=== PATIENT | female | born 1995 | race African-American/Black ===

== ENCOUNTER 2018-06-29 22:50 | Emergency (ER) | payer MEDICAID ==
[~2018-06-29] VITALS: Ht 175.3 cm; Wt 93.9 kg
[2018-06-30 05:02] VITALS: BP 119/82
== END 2018-06-30 05:50 | disposition home or self-care (01) ==
LOC: ER 23:03
DX: N83.209 Unspecified ovarian cyst, unspecified side (principal); N89.8 Other specified noninflammatory disorders of vagina
CPT/HCPCS: 74176

== ENCOUNTER 2019-02-06 22:01 | Emergency (ER) | payer MEDICAID | END 2019-02-06 22:57 | disposition left against medical advice (07) | LOC: ER 22:05 | DX: R51 Headache (principal); Z53.21 Procedure and treatment not carried out due to patient leaving prior to being seen by health care provider ==